=== PATIENT | male | born 2000 | race Caucasian/White ===

== ENCOUNTER 2024-10-16 05:33 | Emergency (ER) | payer BC ==
[~2024-10-16] VITALS: Ht 162.6 cm; Wt 54.4 kg
== END 2024-10-16 07:44 | disposition home or self-care (01) ==
LOC: ER 05:33
DX: S61.012A Laceration without foreign body of left thumb without damage to nail, initial encounter (principal); W26.0XXA Contact with knife, initial encounter
CPT/HCPCS: 12001; 99282-25